=== PATIENT | female | born 1975 | race Caucasian/White ===

== ENCOUNTER → 2019-09-16 15:00 | Outpatient (CLI) | payer SELFPAY ==
[2019-09-23 01:57] LABS: HPV Reflexed? NOT INDICATED
== END ==
PROVIDERS: Visit Provider Obstetrics & Gynecology
DX: Z12.4 Encounter for screening for malignant neoplasm of cervix (principal)
CPT/HCPCS: 88175; G0145

== ENCOUNTER 2021-09-12 08:45 | Day surgery (SDC) | payer SELFPAY ==
--- NOTE | 2021-09-11 09:38 | HP.PCM_ITS ---
History and Physical Date of Admission: 09/12/21 Surgical History and Physical Mirna Blankenship, a 45 year old female 8 0 0 0 8, presents for Laparoscopic Bilateral salpingectomy, IUD removal, possible Dx H/S on 09/12/21. -- Desires Permanent Sterilization and IUD Removal -- She has considered this form of control for quite some time. Also desires Mirena IUD removal. MEDICATIONS HISTORY: Current medications prescribed by our practice are: 1. Mirena 20 mcg/24 hours (5 yrs) 52 mg intrauterine device, As Directed ALLERGIES: NKDA Infections - Chicken pox Illnesses - no serious past illnesses Accidents - None Hospitalizations - Childbirth Review of Systems: GENERAL - Denies fever, or chills SKIN - Denies skin changes EYES - wears eye glasses EARS - Denies difficulty hearing NOSE - Denies nasal congestion or bleeding MOUTH - Denies sore throat or difficulty swallowing NECK - Denies pain or swelling RESPIRATORY - Denies shortness of breath or wheezing CARDIOVASCULAR - Denies palpitations or chest pain GASTROINTESTINAL - Denies nausea, vomiting, diarrhea, constipation GENITOURINARY - Denies dysuria, frequency of urination, incontinence of urine MUSCULOSKELETAL - Denies joint or muscle pain NEUROLOGICAL - Denies localized numbness or weakness PSYCHIATRIC - Feeling sheriff, ? 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 Children Name(s) - 8 children Control - Mirena IUD FAMILY HISTORY: MENSTRUAL HISTORY: LMP Known?- Mirena IUD, LMP - 09/02/19, Age Onset Menarche - 14 PAST PREGNANCIES: Total Pregnancies - 8; Full Term Pregnancies - 8; Premature - 0; Abortions, Induced - 0; Abortions, Spontaneous - 0; Ectopics - 0; Multiple Births - 0; Living Children - 8 PHYSICAL EXAM BP- 120/80 Sitting, Right arm, regular cuff Weight- 221.55236 lbs Height- 66.5 inch BMI:35.2 CONSTITUTIONAL - NAD, well nourished, and well developed SKIN - No rash, lesions, or ulcers HEENT - Normocephalic, PERRLA, EOMI NECK - No nodes, no nuchal rigidity and thyroid normal size and texture LYMPH NODES - Palpation of lymph nodes in neck and groins within normal limits LUNGS - CTA x2 without wheezes, crackles or rales CARDIAC - Regular rate and rhythm without rubs, murmurs, or gallops ABDOMEN - Without hepatosplenomegaly, distention, masses, rebound, or guarding; normal bowel sounds; no hernias EXTREMITIES - No edema or calf tenderness NEUROLOGICAL - Cranial nerves II-XII grossly intact PSYCHIATRIC - A and O to time, place, person, mood and affect External Genitial Vagina - non-tender without lesions Urethra/Urethral Meatus - non-tender Bladder - non-tender Vagina - vaginal kwon are pink and moist without loss of rugae and no evidence of atropy Cervix - without cervical motion tenderness and has normal size and features without evident lesions and IUD string not seen but felt Uterus - 5-6 cm in size, mobile and nontender Adnexa - clear without massess or tenderness ASSESSMENT/PLAN: Desires Permanent Sterilization. Plan L/S Bilateral Salpingectomy and IUD removal. Possible H/S. Discussed RBAs and all questions answered.
[2021-09-12] VITALS (7 sets, daily range): BP systolic 109–132; BP diastolic 67–78; PULSE 69–79; RESP 16; TEMP 36.3–36.8; O2SAT 96–100; BMI 33.4
[2021-09-12] MEDS: Lactated Ringers 1,000 ML 15 ML IV (10:09)
[2021-09-12 10:19] LABS: Hematocrit 38.8 % (37-47); Hemoglobin 13.1 g/dL (12.0-15.0); Mean Corp Hgb Conc 33.8 g/dL (32-36); Mean Corpuscular Hgb 28.7 pg (27.0-32.0); Mean Corpuscular Volume 84.9 fL (81-99); Mean Platelet Vol. 8.6 fl (6.2-12.0); Platelet Count 241 K/mm3 (150-450); RBC Distribution Width CV 12.3 % (11.6-14.6); RBC Distribution Width SD 37.6 fl (35.1-43.9); Red Blood Count 4.57 M/mm3 (4.2-5.4)
--- NOTE | 2021-09-12 10:25 | FALS_PTH ---
PATIENT: MICHELLE GUERRERO LOC: [facility] [place] U#:[id number] AGE/SX: 45/F ROOM: RE09/12/[address]: Dr. Abdullahi Portillo MD : [id number] BED: DIS: 09/12/2021 SPEC #: [id number] RECD: 09/12/21 12:20 STATUS: HELEN NGUYEN #: [id number] NICOLASA: 09/12/21 10:[address]: Abdullhai Portillo DEPT: SURGICAL PATHOLOGY RECD BY: Corbin Leon ENTERED: 09/12/21 13:03 SP TYPE: FALL TUBES OTHR DR: Dr. Selvin Peterson MD Tissues: Fallopian tube Procedures: Surgery Specimen Level II HEADER OPERATION: Laparoscopic salpingectomy, IUD removal PRE-OP DIAGNOSIS: Elective sterilization TISSUE SUBMITTED: Bilateral fallopian tubes MICROSCOPIC DIAGNOSIS Bilateral fallopian tubes, bilateral salpingectomy: Bilateral fallopian tubes, no pathologic diagnosis. SJ:rufina 09/13/2021 MICROSCOPIC DESCRIPTION Slides are reviewed. GROSS DESCRIPTION Received in fixative is one container labeled with the patient's name and designated bilateral fallopian tubes. The specimen consists of bilateral fallopian tubes including fimbrial ends measuring 9.5 cm in length and 0.9 cm in diameter and 7 cm in length and 0.8 cm in diameter. The fallopian tubes are not identified as right or left. Sections reveal unremarkable cut surfaces. [employer] sections are submitted in two cassettes with each cassette containing one fallopian tube. / DARCY:rufina 09/12/2021 TC:4 CPT: 63274 x2
[2021-09-12 10:34] LABS: Partial Thromboplast Time 29.4 Seconds (24.1-36.2); Prothrombin Time (Protime)PT. 12.5 SECONDS (11.7-14.9)
[2021-09-12 10:41] LABS: Internal QC Validated? YES +Cl - CLEAR BKGD; Pregnancy, Serum, hCG Quali. NEGATIVE Negative
[2021-09-12] MEDS: Cefazolin 2 GM in 0.9% Normal Saline 100 ML IV (10:46)
[2021-09-12] MEDS: Ropivacaine 0.5% 30 ML Vial (11:10)
--- NOTE | 2021-09-12 11:27 | OP.PCM_ITS ---
Report of Operation Date of Procedure: 09/12/21 Pre-Operative Diagnosis: Desires Permanent Sterilization, Desires IUD Removal Post-Operative Diagnosis: Desires Permanent Sterilization, Desires IUD Removal Surgery/Procedure Performed:: Laparoscopic Bilateral Salpingectomy and Mirena IUD Removal Description of Surgical Findings:: 10 cm uterus with normal-appearing fallopian tubes and ovaries. IUD string not visualized at the cervix but easily removed with ring forceps without hysteroscopy. Surgeon: Abdullahi Portillo senior policy associate: Yasir Mcgee Type of Anesthesia: General (Endotracheal) Anesthesiologist: Ko Smith Specimen's removed: Bilateral fallopian tubes; Mirena IUD (discarded) Estimated Blood Loss (mL): Minimal Fluids Replaced: Crystalloid Description of Procedure: Surgeon: Abdullahi Portillo MD, FACOG Indications: This is a 45 year old patient who has considered sterilization for quite some time. She is aware of the permanent nature of the procedure, the failure rate of 1-2%, and the availability of other nonpermanent control options. All questions were answered to consider the patient well-informed. Procedure: The patient was taken to the operating room where after induction of general anesthesia, she was placed in the dorsolithotomy position and prepped and draped in the usual sterile fashion. The bladder was drained of approximately 100 cc of clear yellow urine with a catheter. Anterior cervix was grasped with the tenaculum and Mirena IUD removed without difficulty with a ring forcep. Conn cannula was placed and attention was turned toward the laparoscopic portion of the procedure. Approximately 30 cc of half percent ropivacaine was injected subumbilically, suprapubically and midway between. A 5 mm bladeless trocar was placed subumbilically and intraperitoneal placement confirmed. After CO2 insufflation was complete, a 5 mm bladeless trocar was introduced suprapubically. The above findings were noted. A 5 mm bladeless port was then placed midway between these 2 ports for tubal manipulation. Each fallopian tube was identified to its fimbriated end and an Enseal device was used to divide the mesosalpinx to the uterus. Tubes were removed through the lower 5 mm port. The peritoneal cavity and upper abdomen were examined and noted to be normal. Photographs were taken. Laparoscopic instruments with as much CO2 gas as possible were removed and incisions were closed with interrupted 4-0 Monocryl suture. Steri-Strips placed across the incision. Vaginal instruments were removed. The patient tolerated the procedure well was taken to recovery room in [employer] condition and sponge instrument and needle counts were all reportedly correct. Estimated blood loss for the case was minimal. There were no apparent complications of the surgery. Specimens to pathology was bilateral tubes. Grafts/Implants Used: None Complications None Admit VTE Documentation VTE Present on Admission: Yes VTE Mechan Device Prophylaxis: SCD's
--- NOTE | 2021-09-12 11:31 | DCINST_ITS ---
Discharge Instructions Diet Discharge Diet: No restrictions (Increase fluid intake for the next 48 hours.) and - (Increase fluid intake for 48 hours.) Activity Discharge Activity: May Shower and May Take a Tub Bath May resume sexual activity in: 1 week Lifting Restrictions: Less than 25 pounds for 2 weeks Dressing / Incision Call your doctor if your incision/area has: Continuous Slow Oozing, Sudden Increased Bleeding, Increased Pain/ Swelling, Increased Redness and Foul Smelling Discharge Call your doctor if you observe: Fever of 101 or Higher, Inability to urinate, Inability to have a bowel movement and Using more than 1 pad per hour Remove Dressing in: leave until fall off Additional Dressing/Incision Instructions:: Okay to shower over the Steri-Strips tapes. They are for your comfort. If they fall off its okay to replace them with Band-Aids if you desire. Follow Up Care Please Follow Up With: Abdullahi Portillo MD When: 2 to 3 weeks for a postop appointment. Test Results: Test results from this visit will be discussed in further detail at your follow- up appointment, if applicable. Discharge Plan Admission Primary Reason for Your Visit: Tubes and IUD Removal Attending Provider: Abdullahi Portillo Primary Care Provider: Selvin Peterson Discharge Orders/Prescriptions Prescriptions: New oxycodone 5 mg capsule 5 mg PO Q6H PRN (Reason: pain) 7 Days Qty: 10 0RF Referrals / Follow Up: Selvin Peterson MD [Primary Care Provider] - Disposition Disposition (needs filled in before D/C Order can be placed): Home, Self Care
[2021-09-12] MEDS: Acetaminophen 500 MG Tablet 1000 MG PO (13:04)
== END 2021-09-12 13:35 | disposition home or self-care (01) ==
LOC: SDC 08:57 → AC 08:57
PROVIDERS: PCP Family Medicine; Referring Provider Obstetrics & Gynecology; Visit Provider Obstetrics & Gynecology
PROC: (CPT 58661; principal; 2021-09-12 10:10)
DX: Z30.2 Encounter for sterilization (principal); Z30.432 Encounter for removal of intrauterine contraceptive device
CPT/HCPCS: 58661; 58301; 84703; 85027; 85610; 85730; 86850; 86900; 86901; 88302; J7120; C1760; J2405